=== PATIENT | male | born 1970 | race Caucasian/White ===

== ENCOUNTER 2021-07-13 20:52 | Emergency (ER) | payer BC ==
[2021-07-13] MEDS ORDERED: Bupivacaine 0.5% 10 ML VIAL ONE (21:13)
[2021-07-13] MEDS ORDERED: Lidocaine 1% PF 5 ML VIAL ONE (21:13)
[2021-07-13] MEDS ORDERED: Boostrix 0.5 ML (Tdap) VIAL ONE (22:29)
== END 2021-07-13 22:37 | disposition home or self-care (01) ==
LOC: BURERS 20:52
DX: S60.452A Superficial foreign body of right middle finger, initial encounter (principal); I10 Essential (primary) hypertension; W26.8XXA Contact with other sharp object(s), not elsewhere classified, initial encounter; Z87.891 Personal history of nicotine dependence; Z23 Encounter for immunization
CPT/HCPCS: 10120; 90715; J3490